=== PATIENT | male | born 1960 | race Caucasian/White ===

== ENCOUNTER 2024-12-05 18:02 | Emergency (ER) | payer MEDICARE, MEDICAID ==
[~2024-12-05] VITALS: Ht 185.4 cm; Wt 78.6 kg
[2024-12-05] MEDS: normal saline 1000ML IV soln IVB ONE ×3 (18:17→21:26)
[2024-12-05] MEDS: metoclopramide 5 mg/ml inj IV ONE (18:20)
[2024-12-05] MEDS: midazolam 1 mg/ML 2ml injection IV ONE (18:27)
--- NOTE | 2024-12-05 18:28 | Physician Documentation ---
History of Present Illness General Chief Complaint: Vomiting Stated Complaint: N/V Time Seen by : 18:06 History of Present Illness Initial Comments The patient is a 64-year-old male with a history of nausea and vomiting he states he gets episodes of nausea and vomiting he states his last one has been going on for last two days. Patient was seen at [facility] yesterday and discharged from the emergency department. Patient states his nausea and vomiting has continued. He states he has an episodic alcohol drinker but he does not drink daily. The patient states he has also recently been started on high blood pressure medicines. Patient denies any fevers or chills. Patient denies any diarrhea he complains of intermittent abdominal cramping. Patient's symptoms are mild to moderate persistent. Medication Reconciliation Allergies: Coded Allergies: No Known Allergies (Unverified , 12/05/24) Physical Exam Physical Exam Vital Signs: Temperature: 98.2, Source: Oral, Heart Rate: 129, Respiratory Rate: 24, BP: 209/171, Pulse Oximetry: 96, Weight: 78.600 Oxygen Flow Rate: 0 Progress Results/Orders Results/Orders Orders - OHANGELI BARCENAS MD Ultrasound Of Abdomen (12/05/24 19:27) Completed Orders - OHANGELI BARCENAS MD Cbc/Diff (12/05/24 18:10) Normal Saline 1000ml (0.9% Sodium Chlori (12/05/24 18:10) CMP (12/05/24 18:10) Lipase (12/05/24 18:10) Normal Saline 1000ml (0.9% Sodium Chlori (12/05/24 18:10) Lorazepam Inj (Ativan Inj) (12/05/24 18:10) Metoclopramide Inj (Reglan Inj) (12/05/24 18:10) Diphenhydramine Inj (Benadryl Inj.) (12/05/24 18:10) Procalcitonin (12/05/24 18:14) Midazolam 1 Mg/Ml 2ml Inj. (Versed 1 Mg/ (12/05/24 18:25) Labetalol Tablet (Trandate Tablet) (12/05/24 19:10) Ultrasound Of Abdomen (12/05/24 19:27) Lorazepam Tablet (Ativan Tablet) (12/05/24 19:30) Normal Saline 1000ml (0.9% Sodium Chlori (12/05/24 20:00) Ua W/Microscopic, Cult If Ind (12/05/24 22:08) Mag & Alum Hydrox/Simeth Susp (Maalox Or (12/05/24 23:40) Vital Signs 12/05/24 12/05/24 12/05/24 12/05/24 18:06 18:27 18:30 18:38 Temp 98.2 Pulse 129 104 103 Resp 24 24 24 23 B/P (MAP) 209/171 204/150 (168) 198/120 (146) Pulse Ox 96 94 95 O2 Flow Rate 0 0 2.0 12/05/24 12/05/24 12/05/24 12/05/24 19:39 20:00 20:00 20:30 Pulse 91 80 Resp 18 16 16 16 B/P (MAP) 181/101 (127) 159/105 (123) Pulse Ox 98 99 O2 Flow Rate 0 12/05/24 12/05/24 22:26 23:25 Temp 98.0 97.9 Pulse 90 98 Resp 16 16 B/P (MAP) 162/95 (117) 154/98 Pulse Ox 96 99 Laboratory Tests Test 12/05/24 18:16 12/05/24 22:08 White Blood Count 15.5 H Red Blood Count 4.97 Hemoglobin 17.0 Hematocrit 50.1 Mean Corpuscular Volume 100.8 H Mean Corpuscular Hemoglobin 34.1 H Mean Corpuscular Hemoglobin Concent 33.9 Red Cell Distribution Width 14.9 H Platelet Count 332 Mean Platelet Volume 9.1 Neutrophils (%) (Auto) 88.3 H Lymphocytes (%) (Auto) 6.3 L Monocytes (%) (Auto) 5.0 Eosinophils (%) (Auto) 0 Basophils (%) (Auto) 0.4 Neutrophils # (Auto) 13.7 H Lymphocytes # (Auto) 1.0 L Monocytes # (Auto) 0.8 Eosinophils # (Auto) 0.0 Basophils # (Auto) 0.1 CBC Comment Sodium Level 139 Potassium Level 3.6 Chloride Level 93 L Carbon Dioxide Level 23.3 L Anion Gap 23 H Blood Urea Nitrogen 7 Creatinine 0.58 L Estimated GFR/1.73 m2 > 90 BUN/Creatinine Ratio 12.1 Glucose Level 137 H Calcium Level 9.3 Total Bilirubin 1.2 H Aspartate Amino Transf (AST/SGOT) 183 H Alanine Aminotransferase (ALT/SGPT) 142 H Alkaline Phosphatase 167 H Total Protein 8.3 H Albumin 3.8 Globulin 4.5 H Albumin/Globulin Ratio 0.8 L Lipase 31 Procalcitonin 0.09 Chemistry Comments Urine Specimen Description Oneil cath Urine Color Yellow Urine Clarity Clear Urine pH 6.0 Urine Specific [place] 1.020 Urine Protein 30 H Urine Glucose (UA) Negative Urine Ketones 40 H Urine Occult Blood Negative Urine Nitrite Negative Urine Bilirubin Negative Urine Urobilinogen 1.0 Urine Leukocyte Esterase Negative Urine RBC 0-2 Urine WBC None seen Urine Squamous Epithelial Cells Few Urine Bacteria None seen Urine Mucus Moderate Urine Culture Indicated Not ind Volume Urine Centrifuged 10 ml Urine Comment EKG/XRAY/CT/US/VASC/MRI Ultrasound : Impression Patient: SAAD MONET Medical Record: [id number] [place] : 1960, Age: 64 Sex: Male Location: ER Patient Status: [facility] ER Service Date/Time: 12/05/241926 Ordering Physician: ANGELI AGUIRRE MD Exam: ULTRASOUND OF ABDOMEN INDICATION: elevated wbc TECHNIQUE: Multiple real-time sonographic images of the abdomen were obtained. COMPARISON: None FINDINGS: Liver is homogenous in echogenicity. The liver measures 17.2 cm. Moderate hepatic steatosis. No intrahepatic biliary ductal dilatation is noted. The gallbladder wall measures 0.3 cm and is unremarkable. No gallstones or gallbladder sludge. No pericholecystic fluid or edema. The common duct measures 0.3 cm and is unremarkable. The right kidney measures 11.7 cm. No hydronephrosis. The pancreas is not well visualized due to obscuration from bowel gas. The visualized portions of the IVC and aorta are grossly unremarkable. IMPRESSION: No clear source for elevated white cells. Liver is enlarged with moderate hepatosteatosis Electronically Signed by:LUIS ALFREDO WRIGHT MD Date & Time: 12/05/242022 Dictated by: LUIS ALFREDO WRIGHT MD Dictation date and time: 12/05/242022 Primary Care Provider: NO PRIMARY CARE PROVIDER cc: ANGELI AGUIRRE MD ~ Medical Decision Making Findings Patient presents with a an episodic bout of nausea and vomiting states he gets these episodes he does appear to be in alcohol withdrawal he is tremulous tachycardic and hypertensive. The patient was given Ativan as well as a co cktail of medication for his nausea and vomiting. The patient has a benign exam in his labs have been reviewed. The patient has had significant improvement in his symptoms. He was given a dose of labetalol for his hypertension. The patient will be encouraged to follow up with his primary care provider. The patient will be discharged. The patient's pulse oximetry was interpreted as normal and adequate. The patient's prior hospitalizations have been reviewed. And the patient's gambling monitor was interpreted as a sinus tachycardia. Departure Disposition: HOME / SELF CARE / HOMELESS Impression: Primary Impression: Vomiting Qualified Codes: R11.2 - Nausea with vomiting, unspecified Additional Impressions: Hypertension Qualified Codes: I10 - Essential (primary) hypertension Elevated liver enzymes Discharge Instructions: Nausea and Vomiting, Adult Referrals: NO PRIMARY CARE PROVIDER (PCP) Signature Scribe Signature: no scribe Attestation: The note accurately reflects work and decisions made by me.Angeli Aguirre MD 12/08/24 15:47 ANGELI AGUIRRE MD Dec 05, 2024 18:28
[2024-12-05 18:45] LABS: MEAN PLATELET VOLUME 9.1 FL (7.4-10.4); RED CELL DISTRIBUTION WIDTH 14.9 % (11.5-14.5)
[2024-12-05 18:57] LABS: CREATININE 0.58 MG/DL (0.60-1.10); TOTAL CARBON DIOXIDE 23.3 MMOL/L (24-32); eCRCL 141 ML/MIN; eGFR > 90 ML/MIN
--- NOTE | 2024-12-05 20:25 | RADIOLOGY REPORT ---
INDICATION: elevated wbc TECHNIQUE: Multiple real-time sonographic images of the abdomen were obtained. COMPARISON: None FINDINGS: Liver is homogenous in echogenicity. The liver measures 17.2 cm. Moderate hepatic steatosis. No intrahepatic biliary ductal dilatation is noted. The gallbladder wall measures 0.3 cm and is unremarkable. No gallstones or gallbladder sludge. No pericholecystic fluid or edema. The common duct measures 0.3 cm and is unremarkable. The right kidney measures 11.7 cm. No hydronephrosis. The pancreas is not well visualized due to obscuration from bowel gas. The visualized portions of the IVC and aorta are grossly unremarkable. IMPRESSION: No clear source for elevated white cells. Liver is enlarged with moderate hepatosteatosis
[2024-12-05 22:18] LABS: LEUKOCYTE ESTERASE ,URINE NEGATIVE (Neg); NITRITES, URINE NEGATIVE (Neg); OCCULT BLOOD,URINE NEGATIVE (Neg)
[2024-12-05 22:30] LABS: MUCUS STRANDS MODERATE /LPF (Neg); SQUAMOUS EPITHELIAL CELL,UR FEW /LPF (FEW); UA COLLECTION TYPE FOLEY CATH
[2024-12-05 23:25] VITALS: BP 154/98; PULSE 98; RESP 16; TEMP 97.9; O2SAT 99
[2024-12-05] MEDS ORDERED: mag hydrox/Alum hydrox/simeth 30ml oral suspension PO ONE (23:40)
== END 2024-12-05 23:37 | disposition home or self-care (01) ==
LOC: ER 18:02
DX: K76.0 Fatty (change of) liver, not elsewhere classified (principal); R11.2 Nausea with vomiting, unspecified; I10 Essential (primary) hypertension; Z79.899 Other long term (current) drug therapy
CPT/HCPCS: 36415; 76700; 80053; 81001; 83690; 84145; 85025; 96361; 96374; 96375; 99285; A4615; J1200; J2250; J2765; J7030

== ENCOUNTER 2025-02-05 14:59 | Emergency (ER) | payer MEDICARE, MEDICAID ==
[~2025-02-05] VITALS: Ht 185.4 cm; Wt 77.0 kg
[2025-02-05 15:31] LABS: MEAN PLATELET VOLUME 8.0 FL (7.4-10.4); RED CELL DISTRIBUTION WIDTH 14.4 % (11.5-14.5)
[2025-02-05 15:44] LABS: CREATININE 1.02 MG/DL (0.60-1.10); TOTAL CARBON DIOXIDE 22.7 MMOL/L (24-32); eCRCL 79 ML/MIN; eGFR 73 ML/MIN
--- NOTE | 2025-02-05 16:09 | Physician Documentation ---
History of Present Illness ~ Chief Complaint: Abdominal Pain w/vomiting Stated Complaint: VOMITING/HTN Time Seen by MD: 16:07 HPI 64-year-old male presenting with abdominal pain and vomiting He reports a history of recurrent episodes of abdominal cramping with vomiting. He sometimes has diarrhea. He has been seen in the ER in the past for similar symptoms and tells me he had a normal workup and no specific diagnosis. He presents today with several days of abdominal cramping and vomiting. He has not been able to keep fluid. He reports generalized abdominal cramping, worse in the epigastric region in the lower abdomen. He has had some intermittent diarrhea. No blood in the vomit or stool. No fevers. He does have history of stomach acid problems and reports having significant acid reflux right now. He is not currently on an antacid medication. He also does drink alcohol daily. He denies history of alcohol withdrawal. Medication Reconciliation Allergies: Coded Allergies: No Known Allergies (Unverified , 02/05/25) Scheduled Sucralfate (Sucralfate), 1 TAB PO Q6H Review of Systems Constitutional: Denies: fever Gastrointestinal: Reports: abdominal pain, nausea, vomiting, diarrhea Physical Exam Vital Signs: Temperature: 97.5, Source: Oral, Heart Rate: 72, BP: 200/118, Pulse Oximetry: 99, Weight: 77.000 Oxygen Flow Rate: 0 Physical Exam General: This is an uncomfortable appearing middle-aged man, intermittently vomiting HEENT: Atraumatic, oropharynx appears dry Heart: Regular rate and rhythm, normal-appearing peripheral perfusion Lungs: normal work of breathing, normal oxygen saturation on room air Abdomen: Soft, nondistended, mild generalized tenderness, without focal tenderness rebound or guarding Neuro: Alert and oriented Psychiatric: Appears anxious but is cooperative with exam. No significant tongue fasciculation or extremity tremor Progress Results/Orders Results/Orders Orders - JUANITA CHAPA MD Ct Abdomen Pelvis (02/05/25 16:22) Completed Orders - JUANITA CHAPA MD Cbc/Diff (02/05/25 15:05) BMP (02/05/25 15:05) Lipase (02/05/25 15:05) CMP (02/05/25 15:05) Prochlorperazine Inj (Compazine Inj) (02/05/25 15:15) Diphenhydramine Inj (Benadryl Inj.) (02/05/25 15:15) Normal Saline 1000ml (0.9% Sodium Chlori (02/05/25 16:10) Pantoprazole 40mg Iv (Protonix 40mg Iv) (02/05/25 16:15) Ct Abdomen Pelvis (02/05/25 16:22) Iohexol 300mg/Ml 100ml Inj. (Omnipaque-3 (02/05/25 16:28) Diazepam Inj (Valium Inj) (02/05/25 16:55) Mag & Alum Hydrox/Simeth Susp (Maalox Or (02/05/25 17:25) Lidocaine 2% Viscous (Xylocaine 2% Visco (02/05/25 17:25) Medications Received in ER Medications (Trade) Dose Ordered Sig/Magen Route PRN Reason Start Time Stop Time Status Last Admin Dose Admin (Compazine inj) 10 mg ONCE ONCE IV 02/05/25 15:15 02/05/25 15:16 DC 02/05/25 15:15 10 MG (Benadryl inj.) 12.5 mg ONCE ONCE IV 02/05/25 15:15 02/05/25 15:16 DC 02/05/25 15:24 12.5 MG Sodium Chloride 1,000 ml @ 1,000 mls/hr ONCE ONCE IV 02/05/25 16:10 02/05/25 17:09 DC 02/05/25 16:18 1,000 MLS/HR (Protonix 40mg IV) 40 mg ONCE ONCE IV 02/05/25 16:15 02/05/25 16:16 DC 02/05/25 16:21 40 MG (Valium inj) 5 mg ONCE ONCE IV 02/05/25 16:55 02/05/25 16:56 DC 02/05/25 17:16 5 MG (Maalox oral suspension) 30 ml ONCE ONCE PO 02/05/25 17:25 02/05/25 17:26 DC 02/05/25 17:49 30 ML (Xylocaine 2% Viscous 15mL cup) 15 ml ONCE ONCE MM 02/05/25 17:25 02/05/25 17:27 DC 02/05/25 17:49 15 ML Vital Signs 02/05/25 02/05/25 02/05/25 02/05/25 15:02 16:50 17:16 17:19 Temp 97.5 Pulse 72 96 Resp 24 18 16 B/P (MAP) 200/118 140/86 (104) Pulse Ox 99 96 O2 Flow Rate 0 02/05/25 18:32 Temp 98.2 Pulse 90 Resp 19 B/P (MAP) 159/95 Pulse Ox 100 Laboratory Tests Test 02/05/25 15:24 White Blood Count 12.1 H Red Blood Count 5.08 Hemoglobin 17.1 Hematocrit 49.4 Mean Corpuscular Volume 97.2 Mean Corpuscular Hemoglobin 33.7 H Mean Corpuscular Hemoglobin Concent 34.7 Red Cell Distribution Width 14.4 Platelet Count 427 Mean Platelet Volume 8.0 Neutrophils (%) (Auto) 84.3 H Lymphocytes (%) (Auto) 9.5 L Monocytes (%) (Auto) 5.6 Eosinophils (%) (Auto) 0.3 Basophils (%) (Auto) 0.3 Neutrophils # (Auto) 10.2 H Lymphocytes # (Auto) 1.2 Monocytes # (Auto) 0.7 Eosinophils # (Auto) 0.0 Basophils # (Auto) 0.0 CBC Comment Sodium Level 135 Potassium Level 3.9 Chloride Level 91 L Carbon Dioxide Level 22.7 L Anion Gap 21 H Blood Urea Nitrogen 15 Creatinine 1.02 Estimated GFR/1.73 m2 73 BUN/Creatinine Ratio 14.7 Glucose Level 163 H Calcium Level 9.7 Total Bilirubin 2.0 H Aspartate Amino Transf (AST/SGOT) 53 H Alanine Aminotransferase (ALT/SGPT) 41 Alkaline Phosphatase 82 Total Protein 9.0 H Albumin 4.5 Globulin 4.5 H Albumin/Globulin Ratio 1.0 L Lipase 31 Chemistry Comments EKG/XRAY/CT/US/VASC/MRI CT : Impression I personally interpreted the CT scan, and this shows no bowel obstruction or inflammatory process Medical Decision Making Additional information obtaine: old records Findings Reviewed past ER visit and workup Diff Dx GI Bleed:Consideration: Include: Diverticulitis Diff Dx Pain:Considerations: Include: Esophagitis, Gastritis Diff Dx N/V/D:Considerations: Include: Electrolyte imbalance, Food poisoning Diff Dx Rectal:Considerations: Unlikely: Prostatitis Additional Comments The patient presents with abdominal cramping and vomiting. His workup is unrevealing, no evidence of a dangerous medical or surgical emergency including on the CT scan of his abdomen. He does have a history of similar presentations in the past. Overall I think this is most consistent with gastritis and esophagitis. He does have findings to support this on the CT scan as well as clinical symptoms. He was given Protonix and a GI cocktail with good improvement. No evidence to suggest alcohol withdrawal. He then tolerated water without any symptoms. He will be discharged home with a plan for omeprazole and sucralfate, dietary changes, decreased alcohol use, and return precautions. Departure Time of Disposition: 18:09 Disposition: 01 HOME / SELF CARE / HOMELESS Impression: Primary Impression: Acute gastritis Additional Impression: Esophagitis Condition: Improved Discharge Instructions: Gastritis, Adult Referrals: NO PRIMARY CARE PROVIDER (PCP) Prescriptions Sucralfate (Sucralfate) 1 Gram Tablet 1 TAB PO Q6H for 30 Days, #120 TAB 0 Refills Prov: JUANITA CHAPA MD 02/05/25 Education Educated: Patient Educated regarding: diagnosis, treatment, need for follow up Signature Scribe Signature: na Attestation: JUANITA Becker MD Feb 05, 2025 16:08
[2025-02-05] MEDS: normal saline 1000ml 1,000 ML IV ONE (16:18)
[2025-02-05] MEDS ORDERED: iohexol 300mg/ml 100ml inj. ONE (16:28)
--- NOTE | 2025-02-05 17:04 | RADIOLOGY REPORT ---
EXAM: CT CT ABDOMEN PELVIS W/ IV CONTRAST HISTORY: Lower abdominal pain, uncontrollable vomiting COMPARISON: Abdominal ultrasound examination dated 12/05/2024. TECHNIQUE: Helical CT images of the abdomen and pelvis were performed with 100 mL omnipaque 350 IV contrast. Sagittal and coronal reformatted images were obtained. This CT exam was performed using 1 or more of the following dose reduction techniques: Automated exposure control, adjustment of the mA and/or kv according to patient size, or the use of iterative reconstruction techniques. Radiation Dose Information: CT Dose: CTDI volume is 10.77 mGy. Dose-length product is 554.41 mGy*cm FINDINGS: CT abdomen: There is scarring in the lung bases. The heart is not enlarged. There is wall thickening of the distal esophagus. The liver is diffusely fatty density. There is more focal fatty density of the left lobe of the liver adjacent to the falciform ligament. A normal spleen is not visualized, although there are multiple left upper quadrant splenules. The gallbladder, pancreas, kidneys, and adrenal glands are unremarkable. No abdominal aortic aneurysm or dissection. There are atherosclerotic calcifications of the abdominal aorta. There is a small fatty umbilical hernia. CT pelvis: No abnormal bowel dilatation or free air. There is trace free fluid the pelvis. There are descending and sigmoid colon diverticula without evidence of acute diverticulitis. The appendix and urinary bladder are unremarkable. The prostate is mildly enlarged. There is advanced lower lumbar degenerative disc disease and facet arthropathy with significant neural foraminal stenosis bilaterally at L4-L5 and L5-S1. 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 IMPRESSION: 1. Wall thickening about the distal esophagus is suggestive of esophagitis. Consider gastroenterology consultation for appropriate follow-up or management. 2. Hepatic steatosis. 3. 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 4. Descending and sigmoid colon diverticulosis without evidence of acute diverticulitis. 5. Mild prostatic enlargement. 6. Trace free fluid in the pelvis is abnormal for a male, etiology unknown. 7. Advanced lower lumbar degenerative disc disease and facet arthropathy with significant neural foraminal stenosis bilaterally at L4-L5 and L5-SAdditionally, there is bilateral L5 spondylolysis with grade 1 anterolisthesis L5 on S1. These findings may be better characterized with noncontrast MRI of the lumbar spine on a nonemergent basis. Consider nonemergent spinal surgery consultation. 8. No evidence of bowel obstruction, acute appendicitis, or other acute process in the abdomen or pelvis.
[2025-02-05] MEDS: diazepam inj 5 MG/ML inj. IV ONE (17:16)
[2025-02-05] MEDS: mag hydrox/Alum hydrox/simeth 30ml oral suspension PO ONE (17:49)
[2025-02-05] MEDS: LIDOcaine 2% Viscous 15ml cup MM ONE (17:49)
[2025-02-05] MEDS ORDERED: SUCR1TAB PO (18:09)
[2025-02-05 18:32] VITALS: BP 159/95; PULSE 90; RESP 19; TEMP 98.2; O2SAT 100
== END 2025-02-05 18:32 | disposition home or self-care (01) ==
LOC: ER 14:59
DX: K29.00 Acute gastritis without bleeding (principal); K21.00 Gastro-esophageal reflux disease with esophagitis, without bleeding; I10 Essential (primary) hypertension; Z79.899 Other long term (current) drug therapy
CPT/HCPCS: 36415; 74177; 80053; 83690; 85025; 96365; 96375; 99285; J0780; J1200; J2470; J3360; J7030; Q9967